=== PATIENT | female | born 1965 | race Caucasian/White ===

== ENCOUNTER → 2016-10-13 | Outpatient (CLI) | payer OTHER ==
[~2016-10-13] MED LIST: ALPR.5 PO; CITA-48 PO; CITA40TA4 PO; CYMB60CA PO; HYDR-2768 PO; HYDR25TA5 PO; LEVO137T2 PO; METF500 PO; METF500T PO; METO100T PO; XANA0.5T PO
[2016-10-13 10:06] LABS: AUTOMATED NEUTROPHIL # 2.9 TH/MM3 (1.8-7.7); BASOPHIL % 0.6 % (0.0-2.0); EOSINOPHIL # 0.2 TH/MM3 (0-0.4); EOSINOPHIL % 3.3 % (0.0-4.0); HEMO FLAGS DIFF FINAL; LYMPHOCYTE # 1.5 TH/MM3 (1.0-4.8); MEAN CELL VOLUME 80.3 FL (80.0-100.0); MEAN CORPUSCULAR HEMOGLOBIN 26.6 PG (27.0-34.0); MEAN CORPUSCULAR HGB CONC 33.1 % (32.0-36.0); MONO % 11.2 % (0.0-8.0); NEUT % 55.9 % (16.0-70.0); PLATELET COUNT 315 TH/MM3 (150-450); RED BLOOD COUNT 4.49 MIL/MM3 (4.00-5.30); RED CELL DISTRIBUTION WIDTH 15.3 % (11.6-17.2); WHITE BLOOD COUNT 5.3 TH/MM3 (4.0-11.0)
[2016-10-13 11:00] LABS: TRANSFERRIN IRON PROFILE 356 MG/DL (200-360)
== END ==
LOC: CLAB 08:04
DX: D64.9 Anemia, unspecified (principal); R53.81 Other malaise; Z13.21 Encounter for screening for nutritional disorder
CPT/HCPCS: 36415; 82306; 82607; 82746; 83540; 83550; 84443; 85025

== ENCOUNTER 2016-12-20 17:05 | Emergency (ER) | payer OTHER ==
[~2016-12-20] VITALS: Ht 157.5 cm; Wt 101.0 kg
[~2016-12-20 17:05] MED LIST changes: -CITA-48 PO; -HYDR-2768 PO; -METF500 PO; -XANA0.5T PO
[2016-12-20 17:07] VITALS: BP 140/70; PULSE 88; RESP 16; TEMP 98.4; O2SAT 97
--- NOTE | 2016-12-20 17:15 | PD ---
Physical Exam Date Seen by Provider: Dec 20, 2016 Time Seen by Provider: 17:12 Narrative Pt is a 51 year old female presenting to the ED for evaluation of a laceration to right second finger. Pt cut her finger on a bloody scalpel at work today. Wound was cleaned with soap and water and peroxide prior to presentation. Pt states it is tender. VSS awaiting bed placement. Data Data Last Documented VS Vital Signs Date Time Temp Pulse Resp B/P Pulse Ox O2 Delivery O2 Flow Rate FiO2 12/20/16 17:07 98.4 88 16 140/70 97 Room Air MDM Supervised Visit with CHRISTY: Farida Rucker Dec 20, 2016 17:15
--- NOTE | 2016-12-20 17:43 | PD ---
HPI . cut herself with a dirty scalpel Chief Complaint: Exposure to Blood/Body Fluids Time Seen by Provider: 17:35 Travel History International Travel<30 days: No Contact w/Intl Traveler<30days: No Traveled to known affect area: No History of Present Illness HPI 51-year-old female here with complaints of cutting herself on a contaminated scalpel while trying to remove the plate. 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 She is here in the emergency department and has already completed all of the paperwork for postexposure prophylaxis. At this time she is declining the medications until the source patient is tested. [facility] Past Medical History Cancer: No Chest Pain: Yes (pressure) Diabetes: Yes (pre, metformin) Gastrointestinal Disorders: No Glaucoma: No Hepatitis: No Hiatal Hernia: No Hypertension: Yes Integumentary: No Thyroid Disease: Yes ?: Not Social History Alcohol Use: Yes (occ) Tobacco Use: No Allergies-Medications (Allergen,Severity, Reaction): Coded Allergies: Bactrim (Verified Allergy, Severe, Hives, 10/13/16) Reported Meds & Prescriptions Reported Meds & Active Scripts Active Reported Metoprolol Tartrate 100 Mg Tab 100 Mg PO DAILY Metformin (Metformin HCl) 500 Mg Tab 500 Mg PO DAILY With a meal Levothyroxine (Levothyroxine Sodium) 137 Mcg Tab 137 Mcg PO DAILY Hydrochlorothiazide 25 Mg Tab 25 Mg PO DAILY Citalopram (Citalopram Hydrobromide) 40 Mg Tab 40 Mg PO DAILY Xanax (Alprazolam) 0.5 Mg Tab 0.5 Mg PO TID PRN Cymbalta DR (Duloxetine HCl) 60 Mg Capdr 60 Mg PO DAILY Review of Systems General / Constitutional: No: Fever Eyes: No: Visual changes HENT: No: Headaches Cardiovascular: No: Chest Pain or Discomfort Respiratory: No: Shortness of Breath Gastrointestinal: No: Abdominal Pain Genitourinary: No: Dysuria Musculoskeletal: No: Pain Skin: Positive Other (cut right index finger), No Rash Neurologic: No: Weakness Psychiatric: No: Depression Endocrine: No: Polydipsia Hematologic/Lymphatic: No: Easy Bruising Physical Exam Narrative GENERAL: AAO x 3, no acute distress, Well-nourished, well-developed patient. SKIN: Warm and dry. No visible rashes or bruising. very small .08mm cut of the proximal index finger. not deep enough for sutures. no dermabond needed as wound is already closing HEAD: Normocephalic and atraumatic. EYES: No scleral icterus. No injection or drainage. ENT: No nasal drainage noted. Mucous membranes pink. Airway patent. NECK: Supple, trachea midline. No JVD. CARDIOVASCULAR: Regular rate and rhythm without murmurs, gallops, or rubs. RESPIRATORY: Breath sounds equal bilaterally. No accessory muscle use. No rhonchi or rales. GASTROINTESTINAL: Abdomen soft, non-tender, nondistended. EXTREMITIES: No cyanosis or edema. BACK: Nontender without obvious deformity. No CVA tenderness. PSYCH: AAO x 3, normal affect. Data Data Last Documented VS Vital Signs Date Time Temp Pulse Resp B/P Pulse Ox O2 Delivery O2 Flow Rate FiO2 12/20/16 17:07 98.4 88 16 140/70 97 Room Air MDM Medical Decision Making Medical Screen Exam Complete: Yes Emergency Medical Condition: Yes Medical Record Reviewed: Yes Differential Diagnosis blood exposure, superficial laceration of right index finger, Narrative Course 51-year-old female here with complaints of cutting herself on a contaminated scalpel while trying to remove the plate. 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 She is here in the emergency department and has already completed all of the paperwork for postexposure prophylaxis. At this time she is declining the medications until the source patient is tested. Patient seen and examined. Risks vs. benefits of postexposure meds discussed. I recommend waiting on test results. 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 Patient also wants to wait for any treatment. Her labs were drawn. The source patient has been contacted. Employee med will contact the patient for any further testing. There is a small superficial laceration to the right index finger. It is already closed. Explained to patient that sutures or Dermabond is not necessary. She is up-to-date on her tetanus. Patient verbalized understanding of instructions, questions were answered, and thanked me for their care. I advised them if their condition worsens, please return to the nearest emergency room for further care. Diagnosis Primary Impression: Exposure to blood Additional Impression: Superficial laceration of right hand Qualified Code: S61.411A - Superficial laceration of right hand, initial encounter Patient Instructions: Postexposure Prophylaxis (ED) Additional Instructions: Employee med will contact you with further recommendations and lab results. No further care will be needed for the affected finger. Med/Other Pt SpecificInfo: No Change to Meds Disposition: 01 DISCHARGE HOME Condition: Stable Lolis Yang Dec 20, 2016 17:43
== END 2016-12-20 18:10 | disposition home or self-care (01) ==
LOC: NEPK 17:05
DX: S61.210A Laceration without foreign body of right index finger without damage to nail, initial encounter (principal); W26.0XXA Contact with knife, initial encounter; Y92.239 Unspecified place in hospital as the place of occurrence of the external cause; Y99.0 Civilian activity done for income or pay; Z77.21 Contact with and (suspected) exposure to potentially hazardous body fluids
CPT/HCPCS: 99282